=== PATIENT | female | born 1960 | race Caucasian/White ===

== ENCOUNTER 2017-01-02 07:42 | Day surgery (SDC) | payer BC ==
--- NOTE | ~2017-01-02 | EGD ---
EGD REPORT [facility] [address] [place]. [address] NAME: YONATAN LAWRENCE : [birth year] STATUS : REG [facility]#: [id number] AGE: 56 ADM/REG DATE : 01/02/17 MR#: [id number] REPORT SERV DATE: 01/02/17 DICTATED BY: RO BENSON DATE: 01/02/17 REPORT STATUS : Draft TRANSCRIBED BY: [employer] DATE: 01/02/17 [facility] Patient Name: Yonatan Lawrence Date of : 1960 Attending MD: RO BENSON, Procedure Date No Time: 01/02/2017 Procedure: Colonoscopy Indications: Screening for colorectal malignant neoplasm Referring MD: SIOMARA LAAR Medicines: Monitored Anesthesia Care Complications: No immediate complications. Estimated blood loss: None. Procedure: Pre-Anesthesia Assessment: - ASA Grade Assessment: I - A normal, healthy patient. After I obtained informed consent, the scope was passed under direct vision. Throughout the procedure, the patient's blood pressure, pulse, and oxygen saturations were monitored continuously. The CF [id number] was introduced through the anus and advanced to the cecum, identified by appendiceal orifice and ileocecal valve. The colonoscopy was performed without difficulty. The patient tolerated the procedure well. The quality of the bowel preparation was good. Findings: The perianal and digital rectal examinations were normal. Many small-mouthed diverticula were found in the sigmoid colon. Internal hemorrhoids were found during retroflexion and were Grade II (internal hemorrhoids that prolapse but reduce spontaneously). The exam was otherwise without abnormality on direct and retroflexion views. Impression: - Diverticulosis in the sigmoid colon. - Internal hemorrhoids. - The examination was otherwise normal on direct and retroflexion views. Recommendation: - Patient has a contact number available for emergencies. The signs and symptoms of potential delayed complications were discussed with the patient. Return to normal activities tomorrow. Written discharge instructions were provided to the patient. - Return to previous diet. - Patient medication history reviewed. Patient is appropriately not taking any medications. - Repeat colonoscopy in 10 years for screening purposes. EGD REPORT [facility] [address] [place]. [address] NAME: YONATAN LAWRENCE : [birth year] STATUS : REG [facility] PAT#: [id number] AGE: 56 ADM/REG DATE : 01/02/17 MR#: [id number] REPORT SERV DATE: 01/02/17 DICTATED BY: RO BENSON DATE: 01/02/17 REPORT STATUS : Draft TRANSCRIBED BY: [employer] DATE: 01/02/17 Procedure Code(s): --- Professional --- 93330, Colonoscopy, flexible, proximal to splenic flexure; diagnostic, with or without collection of specimen(s) by brushing or washing, with or without colon decompression (separate procedure) Diagnosis Code(s): --- Professional --- K64.1, Second degree hemorrhoids K57.30, Diverticulosis of large intestine without perforation or abscess without bleeding Z12.11, Encounter for screening for malignant neoplasm of colon CPT copyright 2013 [employer]. All rights reserved. The codes documented in this report are preliminary and upon front desk person review may be revised to meet current compliance requirements. RO BENSON, 01/02/2017 9:36 AM Number of Addenda: 0 Note Initiated On: 01/02/2017 9:10 AM [address] [place], [place] [address]
== END 2017-01-02 23:59 | disposition home or self-care (01) ==
LOC: DMU 07:42
PROVIDERS: Internal Medicine Gastroenterology
PROC: 0DJD8ZZ Inspection of Lower Intestinal Tract, Via Natural or Artificial Opening Endoscopic (ICD-10-PCS; principal; 2017-01-02 09:30)
DX: Z12.11 Encounter for screening for malignant neoplasm of colon (principal); K64.1 Second degree hemorrhoids; K57.30 Diverticulosis of large intestine without perforation or abscess without bleeding